=== PATIENT | male | born 1980 | race Caucasian/White ===

== ENCOUNTER 2016-06-20 01:54 | Emergency (ER) | payer SELFPAY ==
--- NOTE | ~2016-06-20 | EKG ---
PATIENT: NANETTE WATSON UNIT #: [id number] Ventricular Rate: 118 BPM Atrial Rate: 118 BPM P-R Interval: 156 ms QRS Duration: 96 ms Q-T Interval: 336 ms QTC Calculation(Bezet): 470 ms P [place]: 61 degrees Calculated R [place]: -47 degrees Calculated T [place]: 36 degrees Diagnosis Line: Sinus tachycardia Diagnosis Line: Left atrial enlargement Diagnosis Line: Left anterior fascicular block Diagnosis Line: Left ventricular hypertrophy Diagnosis Line: Septal infarct (cited on or before 20-JUN-2016) Diagnosis Line: Abnormal ECG Diagnosis Line: When compared with ECG of 20-JUN-2016 01:01, Diagnosis Line: (unconfirmed) Diagnosis Line: No significant change was found Diagnosis Line: Confirmed by INOCENTE MEADE MD ([id number]) on 06/20/2016 Diagnosis Line: 9:20:27 PM INTERPRETING MD: HALINA ENGLAND
--- NOTE | ~2016-06-20 | CR72 ---
[facility] A Service of [facility] RADIOLOGY TEXT RESULTS PATIENT: NANETTE WATSON LOCATION: CFTX : 78 UNIT #: [id number] AGE: [address]: Zaina Houston APRN SEX: M ORDER DR: [id number] [facility] [address]. [place], [place] [address] [id number] MR#: [id number] Acc #: [id number] NAME: NANETTE WATSON : 1980 SEX: M STUDY DATE/TIME: 06/20/2016 1:35 UNIT: CFTX ROOM: STUDY DESCRIPTION: CR Chest Single View Portable Attending Physician: Zaina Houston A.P.R.N. Ordering Physician: Zaina Houston A.P.R.N. Primary Care Physician: Primary Care Physician No MEDICAL IMAGING REPORT This report is preliminary unless electronic signature is present EXAM Frontal chest 06/20/2016 INDICATIONS 35-year-old male with chest pain, tachycardia, symptoms began tonight. TECHNIQUE Frontal chest was performed. COMPARISON: 03/13/2016 FINDING There is mild dextroscoliosis of the thoracic spine. Cardiac silhouette is within normal limits. The aorta is mildly tortuous. Lung volumes are low. There is bronchovascular crowding but the lungs are otherwise clear. No pneumothorax. IMPRESSION 1. Low lung volumes and borderline cardiac size. No effusion or dense consolidation. 2. Mild dextroscoliosis. Dictated by... Nash Bejarano M.D. THIS IS AN ELECTRONICALLY VERIFIED REPORT Nash Bejarano M.D. at 06/20/2016 9:52 PM AUGUSTUS/fran TD: 06/20/2016 07:56 JOB #: [id number] [facility] A Service of [facility] RADIOLOGY TEXT RESULTS PATIENT: NANETTE WATSON LOCATION: CFTX : 78 UNIT #: [id number] AGE: [address]: Zaina Houston APRN SEX: M ORDER DR: MEDICAL IMAGING REPORT Page 1 of 1 COPY
[~2016-06-20 01:54] MED LIST: PEN-VEE K PO; ULTRAM PO
== END 2016-06-20 02:01 | disposition home or self-care (01) ==
LOC: CFTX 01:54
DX: R07.9 Chest pain, unspecified (principal); F41.9 Anxiety disorder, unspecified; F17.210 Nicotine dependence, cigarettes, uncomplicated
CPT/HCPCS: 71010; 99283

== ENCOUNTER 2016-06-20 04:39 | Emergency (ER) | payer SELFPAY ==
[2016-06-20 02:52] LABS: BASOPHIL% 0.4 % (0-2.5); DIFF IND NO; EOSINOPHIL# 0.2 X10e3 (0-0.7); EOSINOPHIL% 3.1 % (0.0-7.0); HEMATOCRIT 50.8 % (38.0-50.0); LYMPHOCYTE# 2.2 X10e3 (1.0-3.5); LYMPHOCYTE% 34.1 % (17.0-45.0); MEAN CELL VOLUME 94.9 FL (83-96); MEAN CORPUSCULAR HEMOGLOBIN 31.7 PG (28-34); MEAN CORPUSCULAR HGB CONC 33.4 g/dL (30-36); MEAN PLATELET VOLUME 9.3 FL (6.5-11.5); MONOCYTE# 0.7 X10e3 (0-1.0); MONOCYTE% 10.2 % (3.0-12.0); NEUTROPHIL# 3.4 X10e3 (1.5-7.1); NEUTROPHIL% 52.2 % (40-75); PLATELET COUNT 181 X10e3 (140-420); RED BLOOD COUNT 5.36 X10e (3.90-5.60); RED CELL DISTRIBUTION WIDTH 13.6 % (11.0-15.5); WHITE BLOOD COUNT 6.4 X10e3 (4.0-10.5)
[2016-06-20 02:57] LABS: AMPHETAMINE NEG (NEG); BARBITURATES NEG (NEG); BENZODIAZEPINES NEG (NEG); COCAINE NEG (NEG); MARIJUANA NEG (NEG); OPIATES NEG (NEG); TRICYCLIC ANTIDEPRESSANTS NEG (NEG); U METHADONE NEG (NEG)
[2016-06-20 03:18] LABS: ALBUMIN SERUM 4.3 g/dL (3.5-5.0); BILIRUBIN, DIRECT 0.1 mg/dL (0.0-0.2); BILIRUBIN,INDIRECT 0.3 mg/dL (0.0-0.9); BILIRUBIN,TOTAL 0.4 mg/dL (0.2-2.0); BUN/CREATININE RATIO 8.57; CALCIUM SERUM 8.9 mg/dL (8.4-10.2); CREATININE SERUM 0.7 mg/dL (0.6-1.4); GLOM FILT RATE Estimated 121.5 mL/min (>60); POTASSIUM 3.7 mmol/L (3.5-5.1); PROTEIN TOTAL SERUM 7.5 g/dL (6.0-8.3)
== END 2016-06-20 04:40 | disposition left against medical advice (07) ==
LOC: CED 04:39
PROVIDERS: Nurse Practitioner
DX: F41.9 Anxiety disorder, unspecified (principal); F17.210 Nicotine dependence, cigarettes, uncomplicated
CPT/HCPCS: 36415; 80048; 80076; 80307; 85025; 93005; 99284; G0480; J1885

== ENCOUNTER 2016-11-24 01:09 | Emergency (ER) | payer SELFPAY ==
[~2016-11-24] VITALS: Ht 177.8 cm; Wt 68.0 kg
--- NOTE | ~2016-11-24 | EKG ---
PATIENT: NANETTE WATSON UNIT #: [id number] Ventricular Rate: 94 BPM Atrial Rate: 94 BPM P-R Interval: 132 ms QRS Duration: 90 ms Q-T Interval: 338 ms QTC Calculation(Bezet): 422 ms P [place]: 63 degrees Calculated R [place]: -48 degrees Calculated T [place]: 23 degrees Diagnosis Line: Normal sinus rhythm Diagnosis Line: Possible Left atrial enlargement Diagnosis Line: Left anterior fascicular block Diagnosis Line: Abnormal ECG Diagnosis Line: When compared with ECG of 20-JUN-2016 01:01, Diagnosis Line: No significant change was found Diagnosis Line: Confirmed by PALMIRA BOWERS MD ([id number]) on Diagnosis Line: 11/25/2016 4:58:00 PM INTERPRETING MD: KEVON
== END 2016-11-24 02:56 | disposition home or self-care (01) ==
LOC: CED 01:09
DX: K08.89 Other specified disorders of teeth and supporting structures (principal); R07.9 Chest pain, unspecified; F41.9 Anxiety disorder, unspecified; F17.200 Nicotine dependence, unspecified, uncomplicated
CPT/HCPCS: 93005; 99285